=== PATIENT | female | born 1955 | race Caucasian/White ===

== ENCOUNTER → 2016-10-22 | Outpatient (CLI) | payer OTHER ==
[~2016-10-22] VITALS: Ht 167.6 cm; Wt 59.0 kg
[~2016-10-22] MED LIST: 24HOUR ALLERGY10 MG PO; DICYCLOMINE HCL20 MG PO; FISH OIL SOFTG1 EACH PO; FLEXERIL10 MG PO; LEVAQUIN500 MG PO; MULTIVITAMIN1 EAC1 PO; NAPROXEN500 MG PO; PAXIL20 MG PO; PERCOCET 10/1 TABLET PO; PHENERGAN-CODE120 ML PO; PRAVACHOL20 MG PO; PRAVASTATIN SOD20 MG PO; PROZAC10 M1 PO; SYNTHROID75 MCG PO; TAMIFLU75 MG PO; TEMOVATE 0.05%30 GM TP; VITAMIN E100 UNI1 PO; XANAX1 MG PO; ZOFRAN4 MG PO
== END | disposition home or self-care (01) ==
LOC: AMB 07:58
DX: Z12.11 Encounter for screening for malignant neoplasm of colon (principal); Z86.010 Personal history of colon polyps; K57.30 Diverticulosis of large intestine without perforation or abscess without bleeding; R10.11 Right upper quadrant pain
CPT/HCPCS: 88305; J2250; J3010